=== PATIENT | male | born 1930 | race Caucasian/White ===

== ENCOUNTER 2018-12-14 11:38 | Observation (INO) | payer MEDICARE, OTHER ==
--- NOTE | 2018-12-14 11:58 | EDM.PDOC ---
ED HPI GENERAL MEDICAL PROBLEM - General Chief Complaint: Neuro Symptoms/Deficits Stated Complaint: GARBLED SPEECH Time Seen by Provider: 12/14/18 11:49 Source of Information: Reports: Patient, Family, Long Term Records History Limitations: Reports: Altered Mental Status - History of Present Illness INITIAL COMMENTS - FREE TEXT/NARRATIVE: 88 YO WM presents to ER by private car from group home with a 1 day history of mild confusion and garbled speech. skilled nursing called provider (Azeem Maier) this am who recommended ER evaluation. Pt is DNR/DNI and fairly healthy with PMH of previous SAH. Pt is alert and oriented x 2 (self and place) without any focal neuro deficits. Pt laughed when i told him he was sent here for evaluation of confusion. Pt denies headache, chest pain, shortness of breath , nausea/vomiting or experiencing any pain currently. Onset: Today Location: Reports: Generalized Worsens with: Reports: None Associated Symptoms: Reports: Confusion, Weakness. Denies: Chest Pain, Headaches, Nausea/Vomiting, Shortness of Breath, Syncope - Related Data Allergies Allergy/AdvReac Type Severity Reaction Status Date / Time No Known Drug Allergies Allergy Cannot Verified 06/21/18 12:52 Remember Home Meds: Home Meds Aspirin [Aspirin EC] 325 mg PO DAILY #30 tablet. 06/26/18 [Rx] Levothyroxine 25 mcg PO ACBREAKFAST #30 tablet 06/26/18 [Rx] Dextromethorphan HBr [Scot-Tussin] 10 ml PO Q4H PRN 12/14/18 [History] Magnesium Hydroxide [Milk of Magnesia] 30 ml PO DAILY PRN 12/14/18 [History] Sertraline [Zoloft] 25 mg PO DAILY 12/14/18 [History] Past Medical History HEENT History: Reports: Hard of Hearing Cardiovascular History: Reports: High Cholesterol Endocrine/Metabolic History: Reports: Hypothyroidism Social & Family History - Family History Family Medical History: Unobtainable - Caffeine Use Caffeine Use: Reports: None ED ROS GENERAL - Review of Systems Review Of Systems: See Below Constitutional: Reports: No Symptoms HEENT: Reports: No Symptoms Respiratory: Reports: No Symptoms Cardiovascular: Reports: No Symptoms Endocrine: Reports: No Symptoms GI/Abdominal: Reports: No Symptoms : Reports: No Symptoms Musculoskeletal: Reports: No Symptoms Skin: Reports: No Symptoms Neurological: Reports: Confusion, Weakness. Denies: Dizziness, Headache, Numbness, Paresthesia, Pre-Existing Deficit, Seizure, Syncope, Trouble Speaking , Difficulty Walking Psychiatric: Reports: Confusion Hematologic/Lymphatic: Reports: No Symptoms Immunologic: Reports: No Symptoms ED EXAM, NEURO - Physical Exam Exam: See Below Exam Limited By: Altered Mental Status General Appearance: Alert, WD/WN, No Apparent Distress Eye Exam: Bilateral Eye: EOMI, PERRL Throat/Mouth: Normal Inspection, Normal Lips, Normal Teeth, Normal Gums, Normal Oropharynx, Normal Voice, No Airway Compromise Head Exam: Atraumatic, Normocephalic Neck: Normal Inspection, Supple, Non-Tender, Full Range of Motion Respiratory/Chest: No Respiratory Distress, Lungs Clear, Normal Breath Sounds, No Accessory Muscle Use, Chest Non-Tender Cardiovascular: Normal Peripheral Pulses, Regular Rate, Rhythm, No Edema, No Gallop, No JVD, No Murmur, No Rub GI/Abdominal: Normal Bowel Sounds, Soft, Non-Tender, No Organomegaly, No Distention, No Abnormal Bruit, No Mass Neurological: Alert, Normal Mood/Affect, Normal Dorsiflexion, CN II-XII Intact, Normal Plantar Flexion, Normal Gait, Normal Reflexes, No Motor/Sensory Deficits , Oriented x 3 Back Exam: Normal Inspection, Full Range of Motion, NT Extremities: Normal Inspection, Normal Range of Motion, Non-Tender, No Pedal Edema, Normal Capillary Refill Psychiatric: Normal Affect, Normal Mood Skin Exam: Warm, Dry, Intact, Normal Color, No Rash EKG INTERPRETATION EKG Date: 12/14/18 Time: 12:10 Rhythm: NSR Rate (Beats/Min): 67 [place]: Normal QRS: RBBB ST-T: Normal QT: Normal Comparison: NA - No Prior EKG Course - Vital Signs Last Recorded V/S: Last Vital Signs Temp 36.1 C 12/14/18 12:07 Pulse 74 12/14/18 12:07 Resp 18 12/14/18 12:07 BP 158/90 H 12/14/18 12:07 Pulse Ox 95 12/14/18 12:07 - Orders/Labs/Meds Orders: Active Orders 24 hr Category Date Time Status EKG Documentation Completion [RC] ASDIRECTED Care 12/14/18 11:48 Active CULTURE URINE [RM] Stat Lab 12/14/18 13:09 Ordered cefTRIAXone [Rocephin] Med 12/14/18 13:09 Once 1 gm IVPUSH ONETIME ONE EKG 12 Lead [EK] Routine Ther 12/14/18 11:45 Ordered Labs: Laboratory Tests 12/14/18 12/14/18 12/14/18 Range/Units 11:55 11:55 11:55 WBC 9.96 (5.00-10.00) 10^3/uL RBC 5.05 (4.50-6.00) 10^6/uL Hgb 15.9 (13.0-17.0) g/dL Hct 45.7 (40.0-52.0) % MCV 90.5 (82.0-92.0) fL MCH 31.5 H (27.0-31.0) pg MCHC 34.8 (32.0-36.0) g/dL RDW 12.2 (11.5-14.5) % Plt Count 227 (150-400) 10^3/uL MPV 10.6 H (7.4-10.4) fL Immature Gran % (Auto) 0.2 (0.0-5.0) % Neut % (Auto) 78.0 H (50.0-70.0) % Lymph % (Auto) 14.9 L (20.0-40.0) % [place] % (Auto) 5.5 (2.0-8.0) % Eos % (Auto) 1.0 (1.0-3.0) % Baso % (Auto) 0.4 (0.0-1.0) % Immature Gran # (Auto) 0.02 (0.00-0.50) 10^3/uL Neut # (Auto) 7.77 H (2.50-7.00) 10^3/uL Lymph # (Auto) 1.48 (1.00-4.00) 10^3/uL [place] # (Auto) 0.55 (0.10-0.80) 10^3/uL Eos # (Auto) 0.10 (0.10-0.30) 10^3/uL Baso # (Auto) 0.04 (0.00-0.10) 10^3/uL PT 9.9 (8.9-11.4) SEC INR 1.0 (0.9-1.1) APTT 29.0 (23.1-31.3) SEC Sodium 140 (138-146) mmol/L Potassium 4.0 (3.5-4.9) mmol/L Chloride 101 (98-109) mmol/L Carbon Dioxide 26.3 (21.0-32.0) mmol/L Anion Gap 16.7 H (5-15) mmol/L BUN 19 (6-25) mg/dL Creatinine 0.82 (0.51-1.17) mg/dL Est Cr Clr Drug Dosing 57.10 mL/min Estimated GFR (MDRD) > 60 mL/min Glucose 108 H (75 - 99) mg/dL Calcium 8.7 (8.7-10.3) mg/dL Total Bilirubin 0.4 (0.2-1.0) mg/dL AST 17 (15-37) U/L ALT 22 (12-78) U/L Alkaline Phosphatase 65 (46-116) IU/L Creatine Kinase 170 (26-276) U/L CK-MB (CK-2) 2.30 (0.00-4.30) ng/mL Troponin I < 0.04 (0.00-0.070) ng/mL Total Protein 7.4 (6.4-8.2) g/dL Albumin 3.75 (3.00-4.80) g/dL Specimen Type Urine Color (YELLOW) Urine Appearance (CLEAR) Urine pH (5.0-9.0) Ur Specific [place] (1.005-1.030) Urine Protein (NEGATIVE) mg/dL Urine Glucose (UA) (NEGATIVE) mg/dL Urine Ketones (NEGATIVE) mg/dL Urine Occult Blood (NEGATIVE) Urine Nitrite (NEGATIVE) Urine Bilirubin (NEGATIVE) Urine Urobilinogen (0.2-1.0) E.U./dL Ur Leukocyte Esterase (NEGATIVE) Urine RBC (0-5) /HPF Urine WBC (0-5) /HPF Ur Epithelial Cells /LPF Urine Bacteria (NONE TO FEW) /HPF 12/14/18 Range/Units 12:20 WBC (5.00-10.00) 10^3/uL RBC (4.50-6.00) 10^6/uL Hgb (13.0-17.0) g/dL Hct (40.0-52.0) % MCV (82.0-92.0) fL MCH (27.0-31.0) pg MCHC (32.0-36.0) g/dL RDW (11.5-14.5) % Plt Count (150-400) 10^3/uL MPV (7.4-10.4) fL Immature Gran % (Auto) (0.0-5.0) % Neut % (Auto) (50.0-70.0) % Lymph % (Auto) (20.0-40.0) % [place] % (Auto) (2.0-8.0) % Eos % (Auto) (1.0-3.0) % Baso % (Auto) (0.0-1.0) % Immature Gran # (Auto) (0.00-0.50) 10^3/uL Neut # (Auto) (2.50-7.00) 10^3/uL Lymph # (Auto) (1.00-4.00) 10^3/uL [place] # (Auto) (0.10-0.80) 10^3/uL Eos # (Auto) (0.10-0.30) 10^3/uL Baso # (Auto) (0.00-0.10) 10^3/uL PT (8.9-11.4) SEC INR (0.9-1.1) APTT (23.1-31.3) SEC Sodium (138-146) mmol/L Potassium (3.5-4.9) mmol/L Chloride (98-109) mmol/L Carbon Dioxide (21.0-32.0) mmol/L Anion Gap (5-15) mmol/L BUN (6-25) mg/dL Creatinine (0.51-1.17) mg/dL Est Cr Clr Drug Dosing mL/min Estimated GFR (MDRD) mL/min Glucose (75 - 99) mg/dL Calcium (8.7-10.3) mg/dL Total Bilirubin (0.2-1.0) mg/dL AST (15-37) U/L ALT (12-78) U/L Alkaline Phosphatase (46-116) IU/L Creatine Kinase (26-276) U/L CK-MB (CK-2) (0.00-4.30) ng/mL Troponin I (0.00-0.070) ng/mL Total Protein (6.4-8.2) g/dL Albumin (3.00-4.80) g/dL Specimen Type [place] Urine Color Yellow (YELLOW) Urine Appearance Clear (CLEAR) Urine pH 6.0 (5.0-9.0) Ur Specific [place] 1.020 (1.005-1.030) Urine Protein Negative (NEGATIVE) mg/dL Urine Glucose (UA) Negative (NEGATIVE) mg/dL Urine Ketones Negative (NEGATIVE) mg/dL Urine Occult Blood Negative (NEGATIVE) Urine Nitrite Negative (NEGATIVE) Urine Bilirubin Negative (NEGATIVE) Urine Urobilinogen 0.2 (0.2-1.0) E.U./dL Ur Leukocyte Esterase Negative (NEGATIVE) Urine RBC 0-5 (0-5) /HPF Urine WBC 0-5 (0-5) /HPF Ur Epithelial Cells Rare /LPF Urine Bacteria Few (NONE TO FEW) /HPF Departure - Departure Time of Disposition: 13:11 Disposition: Refer to Observation Condition: Fair Clinical Impression: Confusion, Weakness Urinary tract infection Qualifiers: Urinary tract infection type: acute cystitis Hematuria presence: without hematuria Qualified Code(s): N30.00 - Acute cystitis without hematuria - Discharge Information Referrals: Ashlyn Betancourt, [facility] [Primary Care Provider] - Forms: ED Department Discharge - My Orders Last 24 Hours: My Active Orders 12/14/18 11:45 EKG 12 Lead [EK] Routine 12/14/18 11:48 EKG Documentation Completion [RC] ASDIRECTED 12/14/18 13:09 CULTURE URINE [RM] Stat cefTRIAXone [Rocephin] 1 gm IVPUSH ONETIME ONE - Assessment/Plan Last 24 Hours: My Active Orders 12/14/18 11:45 EKG 12 Lead [EK] Routine 12/14/18 11:48 EKG Documentation Completion [RC] ASDIRECTED 12/14/18 13:09 CULTURE URINE [RM] Stat cefTRIAXone [Rocephin] 1 gm IVPUSH ONETIME ONE Assessment:: 1. confusion 2. weakness 3. suspected UTI (cath) Plan: 1. admit 23 hour obs- Azeem Maier 2. rocephin 1g IV 3. supportive care 4. remainder of orders per Azeem Maier PA-C
[2018-12-14 12:22] LABS: SODIUM,NA 140 mmol/L (138-146)
[2018-12-14 12:23] LABS: CHLORIDE,CL 101 mmol/L (98-109)
--- NOTE | 2018-12-14 12:33 | CT ---
[id number] CT/CT Head WO IV EXAM: CT Head WO IV CLINICAL DATA: CONFUSION COMPARISON STUDY: June 23, 2018. FINDINGS: No intracranial hemorrhage, extra-axial fluid collection, mass, or acute ischemia. Areas of encephalomalacia involving the left frontal and parietal lobes are stable. Generalized parenchymal atrophy with scattered areas of nonspecific white matter disease, commonly seen as sequela of chronic microvascular ischemia. Soft tissues are unremarkable. Near complete opacification of the right maxillary sinus. IMPRESSION: No definite acute intracranial findings. Bakari Stafford DO 12/14/18 1232 Thank you for allowing us to participate in the care of your patient.
--- NOTE | 2018-12-14 12:35 | CR ---
[id number] RAD/RAD Chest PA or AP 1V EXAM: RAD Chest PA or AP 1V INDICATION: CONFUSION COMPARISON: December 07, 2015. DISCUSSION: Cardiomediastinal silhouette is stable in size and contour. No pneumothorax, or edema. Low lung volumes with associated vascular crowding. Bibasilar subsegmental atelectasis and/or scarring. Trace left pleural effusion. IMPRESSION: Small left pleural effusion with associated compressive atelectasis and/or scarring. Underlying infiltrate is not completely excluded. Bakari Stafford DO 12/14/18 1368 Thank you for allowing us to participate in the care of your patient.
[2018-12-14 12:36] LABS: ANION GAP 16.7 mmol/L (5-15)
[2018-12-14] MEDS ORDERED: cefTRIAXone 1 GM Vial IVPUSH ONE (13:09)
[2018-12-14] MEDS ORDERED: DEXTROMETHORPHAN HBR PO PRN (14:11)
[2018-12-14] MEDS ORDERED: Magnesium Hydroxide 400 MG/5 ML Susp 30 ML Cup PO PRN (14:11)
[2018-12-14] MEDS ORDERED: Sodium Chloride 0.9% 1,000 ML IV SCH (14:15)
--- NOTE | 2018-12-14 15:53 | HP ---
HISTORY OF PRESENT ILLNESS: This is an 88-year-old gentleman who lives at the [facility], [address] [place] in [place], [place]. Nursing staff had called me earlier today stating that the patient was kind of confused and he was having some garbled speech. History of stroke in the past with a bleed. She states that he was running no fever, he had no complaints. She says that his gait was not quite what it usually was. He was recently started on Zoloft 25 mg daily for some depression. His daughter states that lately he has just been kind of more depressed lately. Nursing staff was just concerned because this was not his normal behavior. They denied any unilateral weakness. They denied any facial droop. I advised the nursing staff to send him to the emergency room for further evaluation and treatment. 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 No acute findings on head CT. Lab work was unremarkable. He did have a urinalysis that was obtained in the emergency room that did show few bacteria. The patient was admitted to the hospital at that time for further evaluation and treatment of acute confusion along with mild bladder infection. PAST MEDICAL HISTORY: The patient has a past medical history of subarachnoid bleed, depression of lately, and hypothyroidism. Otherwise, he is very healthy. MEDICATIONS: The medications that he does take at the senior care. He takes low-dose levothyroxine 25 mcg daily for hypothyroidism. He takes aspirin 325 mg daily for previous stroke and he was recently started on Zoloft 25 mg daily. Otherwise, he takes no other medications. ALLERGIES: He has no known drug allergies. SOCIAL/PERSONAL HISTORY: He has been retired, living at the senior care for several years. No alcohol or tobacco use. REVIEW OF SYSTEMS: The patient denies any symptoms at all. He says he feels fine. CONSTITUTIONAL: No weight loss. No fever. No chills. No night sweats. Appetite is good. No fatigue. EYES: No recent visual changes. ENT: No sinus congestion or hoarseness. CARDIOVASCULAR: No chest pain or palpitations. RESPIRATORY: No cough. No shortness of breath. GI: No vomiting, diarrhea or melena. : No dysuria or hematuria. MUSCULOSKELETAL: No new bone pain or joint swelling. INTEGUMENTARY: No rash or pruritus. NEUROLOGIC/PSYCHIATRIC: No recent headache or focal weakness. No depressive symptoms. ENDOCRINE: No heat or cold intolerances or polydipsia. HEMATOLOGIC/LYMPHATIC: No excessive bruising or lymph node swelling. ALLERGIC/IMMUNOLOGIC: No hives or recurrent infections. PHYSICAL EXAMINATION: GENERAL: This is an elderly white male, in no acute distress. He is very pleasant, very easy to talk to. He cannot tell me what month it is. He cannot tell me where he is from. He does answer simple questions otherwise very easily. VITAL SIGNS: Today, blood pressure is 158/90, respiratory rate is 18, oxygen saturation on room air is 95%, pulse is 74 and temperature is 97.0. The patient's weight today is 178 pounds. HEENT: Head is normocephalic. EOMs are intact. Pupils are equal, round and reactive to light to light and accommodation. Nose is clear. No pharyngeal erythema noted. NECK: Supple. No JVD. Trachea is midline. LUNGS: Sounds are clear throughout lung mack. CARDIAC: Heart tones are regular rate and rhythm. No murmurs identified. ABDOMEN: Soft, nontender, nondistended. Bowel sounds present x4. EXTREMITIES: Full range of motion. No joint effusion noted. No pedal edema noted on exam. NEUROLOGIC: Hand grasp is equal. He can push and pull his feet equal in strength on command. No facial droop noted on exam. Cranial nerves are all intact. The patient is confused. He is oriented to himself. He is not oriented to time or place. He does recognize family members easily. DIAGNOSTIC: Patient's lab work that was obtained in the emergency room. CBC shows a white count within normal range at 9.96, hemoglobin is 15.9, platelet count is 227. The patient's PT was 9.9, INR 1.0, PTT was 29.0. Chemistry panel is totally unremarkable, there is nothing to even comment on. The patient's CK- MB within normal range at 2.3. Troponin was negative. The patient's urinalysis actually was unremarkable except for few bacteria, which is probably his baseline. CT of the head report per Radiology just reads that there is an old subarachnoid hemorrhage. No acute findings on the CT scan. The patient also did have a chest x-ray obtained in the emergency room. The impression reads small left pleural effusion with associated compressive atelectasis and/or scarring. Underlying infiltrate is not completely excluded. IMPRESSION/PLAN: 1. Acute delirium, confusion secondary to either possible starting Zoloft recently or possibly the mild urinary tract infection. At this time, we are going to treat him with Rocephin 1 g IV, he did get it in the emergency room. I am going to run some IV fluids, just normal saline at 50 mL an hour to help flush out the bladder. I am going to hold the Zoloft at this time, it is a low dose but I'm suspecting it may be a possible cause. His daughter does state that he has been mildly depressed for the last two weeks, that is why it was recently started. 2. Hypothyroidism. Plan, patient continues to take levothyroxine 25 mcg daily. Add a TSH to his lab work, it is pending at this time. 3. History of subarachnoid bleed with cerebrovascular accident. Plan, we will continue with aspirin 325 mg as patient's CAT scan shows no acute findings. OVERALL PLAN: The patient is just here for observation. We will possibly send the patient back to [facility] tomorrow morning if he is doing well. /[id number]/MODL MTDD
[2018-12-15] MEDS ORDERED: Levothyroxine 25 MCG Tab PO SCH (07:30)
[2018-12-15 07:51] VITALS: BP 147/70
[2018-12-15] MEDS ORDERED: Aspirin 325 MG Tab.EC PO SCH (09:00)
[2018-12-15] MEDS ORDERED: Sertraline 50 MG Tab PO SCH (09:00)
--- NOTE | 2018-12-15 10:46 | DISCH ---
ADMITTING DIAGNOSIS: Acute confusion with mild bladder infection. DISCHARGE DIAGNOSIS: Bladder infection, resolved. The patient continues to be pleasantly confused. BRIEF HISTORY AND ESSENTIAL PHYSICAL FINDINGS: This is an 88-year-old male patient who lives at the [facility] in [place], [place]. The patient seemed to be having some garbled speech. Nursing staff was concerned about it as the patient did have a history of a stroke with a subarachnoid bleed in the past, this past June, and they were concerned with the change in his status. The patient was still walking with his walker. He had no unilateral weakness. No facial droop, but nursing staff was concerned. At that time the patient was brought to the emergency room for further evaluation and treatment. In the emergency room, the patient was found to have a few bacteria in his urinalysis. Otherwise, lab work was all unremarkable. The patient was pleasantly confused. He did answer simple questions, but he could not answer the month or what town he was from. He was admitted for observation status at that time. SIGNIFICANT LABS XRAYS AND CONSULTATION FINDINGS: The patient's chest x-ray that was obtained in the emergency room, the impression reads small left pleural effusion with associated compressive atelectasis and/or scarring. Underlying infiltrate is not completely excluded as per Radiology. The patient's CT of the head that he had performed in the emergency room, the impression reads no definite acute intracranial findings. He does have generalized parenchymal atrophy with scattered areas of nonspecific white matter disease, commonly seen as sequel of chronic microvascular ischemia. Lab work that was obtained in the emergency room, CBC showed a white count at 9.9, hemoglobin 15.9, platelet count at 227. The patient's PT was 9.9, INR 1.0, PTT was 29.0. Chemistry panel was unremarkable except for glucose was slightly elevated at 108. Troponin was negative. CK-MB was negative. The patient's TSH within normal range at 2.4. Urinalysis actually was unremarkable except for a few bacteria. We did repeat that this morning, that is not back yet. COURSE IN HOSPITAL WITH COMPLICATIONS IF ANY: No problems throughout the hospital stay. He still seems to be confused to date and time. He even has trouble recalling his own name at times. He is very pleasant, easy to talk to. He denies any pain, shortness of breath. He states he feels good. He is appetite is good. He walked to the bathroom without difficulty. He is just showing signs of dementia. CONDITION TREATMENT AND FINAL DISPOSITION ON DISCHARGE AND PROGNOSIS: Condition is stable. He will return back to [facility] in [place]. IMPRESSION AND PLAN: 1. Exacerbated confusion/dementia recently. Plan: We did treat the patient with 1 g Rocephin for a mild bladder infection that was very mild. I am not going to send him home on antibiotics. We did give him some IV fluids. Repeat urinalysis is actually pending as I am dictating this note. We did run some IV fluids on him through the night. I am going to hold the patient's Zoloft, that is the only change that has been in the last couple weeks and may be causing this increase in delirium and dementia, so hold the Zoloft on return to the alf. Nursing staff here at the hospital state that when he was here in June, he was confused also. 2. Hypothyroidism. Plan: I am going to send the patient back on levothyroxine 25 mcg daily. We did a TSH here in the hospital which was in the normal range at 2.44. 3. History of cerebrovascular accident with old bleed showed on the recent CAT scan. We will continue the patient on aspirin 325 mg daily at the alf. OVERALL PLAN: I am going send the patient back to [facility] today. The only medications he will be on are levothyroxine 25 mcg daily along with aspirin 325 mg daily. We are going to stop the Zoloft and see how the patient does. I will have the patient follow up with IGOR Bermeo, next week and see how he is doing. She possibly may need to start the patient on Aricept for increasing dementia. /[id number]/MODL MTDD
[2018-12-15] MEDS ORDERED: cefTRIAXone 1 GM Vial IVPUSH SCH (14:00)
== END 2018-12-15 10:02 ==
LOC: KA.ED 11:38 → KA.MS 13:12
PROVIDERS: ADMIT Physician Assistant Medical; ATTEND Physician Assistant
DX: F03.90 Unspecified dementia, unspecified severity, without behavioral disturbance, psychotic disturbance, mood disturbance, and anxiety (principal); F05 Delirium due to known physiological condition; N30.90 Cystitis, unspecified without hematuria; E03.9 Hypothyroidism, unspecified; F32.9 Major depressive disorder, single episode, unspecified; Z86.73 Personal history of transient ischemic attack (TIA), and cerebral infarction without residual deficits; Z79.82 Long term (current) use of aspirin; Z79.899 Other long term (current) drug therapy
CPT/HCPCS: 51701; 70450; 71045; 80053; 81001; 82550; 82553; 84443; 84484; 85025; 85610; 85730; 87086; 93005; 96361; 96374; 99284; 99285-25; A9270-GY; G0378; J0696; J7030